=== PATIENT | female | born 1980 | race Hispanic/Latino ===

== ENCOUNTER 2018-03-21 21:10 | Emergency (ER) | payer SELFPAY ==
[2018-03-21 22:18] LABS: Absolute Lymphocytes (CBC) 3.1 K/uL (0.7-4.9); Absolute Monocytes 0.5 K/uL (0.1-1.3); Absolute Neutrophil 4.8 K/uL (1.8-8.0); Basophils % 0.4 % (0-1.3); Eosinophils % 3.7 % (0-4.4); Hematocrit 39.4 % (36.0-45.0); Lymphocytes % 35.7 % (15.3-44.8); MCH 28.9 pg (27.0-35.0); MCV 83.7 fL (80-100); MPV 7.7 fL (7.6-11.3); Monocytes % 5.6 % (3.3-12.3); RBC Red Blood Cell Count 4.71 M/uL (3.86-4.86)
[2018-03-21 22:24] LABS: Protime INR 1.03
[2018-03-21 22:40] LABS: ALT/SGPT 46 U/L (12-78); AST/SGOT 31 U/L (15-37); Albumin 3.9 g/dL (3.4-5.0); Alkaline Phosphatase 100 U/L (45-117); BUN Blood Urea Nitrogen 13 mg/dL (7-18); Bicarbonate 25 mmol/L (21-32); Bilirubin Direct < 0.1 mg/dL (0-0.2); Bilirubin Total 0.2 mg/dL (0.2-1.0); CKMB Creatine Kinase MB 1.3 ng/mL (0.3-3.6); Creatine Phosphokinase 155 U/L (26-192); Glucose Level 172 mg/dL (74-106); NT PRO-BNP 47 pg/mL (<125); Potassium 3.2 mmol/L (3.5-5.1); Protein, Total 7.9 g/dL (6.4-8.2); Sodium Level 139 mmol/L (136-145)
[2018-03-21] MEDS ORDERED: ACETAMINOPHEN 500 MG TAB ONE ×2 (23:05)
[2018-03-21 23:24] LABS: Urine Blood 2+ (NEG); Urine Glucose NEGATIVE (NEG); Urine Protein NEGATIVE (NEG); Urine Specific Gravity 1.025 (1.005-1.030)
[2018-03-22] MEDS ORDERED: POTASSIUM 25 MEQ EFFERV TAB ONE (01:44)
--- NOTE | 2018-03-22 01:49 | EDPHYS ---
Physician Documentation [facility] Name: Danay Duff Age: 37 yrs Sex: Female : 1980 Arrival Date: 03/21/2018 Time: 21:12 Bed 7 Private MD: ED Physician Franco Jiang HPI: 03/21 22:20 This 37 yrs old Female presents to ER via Ambulatory with complaints of Chest rh1 Pain. 22:20 The patient or guardian reports chest pain that is located primarily in the anterior rh1 chest wall, bilaterally. The pain does not radiate. Associated signs and symptoms: Pertinent positives: shortness of breath, Pertinent negatives: abdominal pain, cough, diaphoresis, dizziness, headache, lower extremity pain, lower extremity swelling, lightheadedness, nausea, near syncope, palpitations, recent travel, syncope, vomiting. The chest pain is described as a pressure. Duration: The patient or guardian reports multiple episodes, that are intermittent. Modifying factors: The symptoms are alleviated by nothing. the symptoms are aggravated by deep breath. Severity of pain: At its worst the pain was moderate in the emergency department the pain is unchanged. The patient has not experienced similar symptoms in the past. The patient has not recently seen a physician. Pt. reports chest pain with deep inspiration ongoing since this am. Pain is described as "something sitting there, like pushing on me." Reports this am + SOB, denies any at this time. Denies any hemoptysis, diaphoresis, weakness, paresthesias, abdominal pain, N/V.. 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 - Social history:: Smoking status: Patient/guardian denies using tobacco. - Ebola Screening: : Patient denies travel to an Ebola-affected area in the 21 days before illness onset. ROS: 22:20 Constitutional: Negative for fever, chills rh1 22:20 ENT: Negative for rhinorrhea, sinus congestion, sore throat, difficulty swallowing, difficulty handling secretions, hoarseness. 22:20 Neck: Negative for pain with movement, pain at rest. 22:20 Cardiovascular: Positive for chest pain, Negative for edema, orthopnea, palpitations. 22:20 Respiratory: Positive for pleurisy, shortness of breath, Negative for cough, dyspnea on exertion, hemoptysis, sputum production, wheezing. 22:20 Abdomen/GI: Negative for abdominal pain, nausea and vomiting. 22:20 Back: Negative for decreased range of motion, pain at rest, pain with movement, radiated pain. 22:20 : Negative for burning with urination. 22:20 MS/extremity: Negative for decreased range of motion, pain, paresthesias. 22:20 Skin: Negative for diaphoresis, swelling. 22:20 Neuro: Negative for altered mental status, dizziness, headache, numbness, syncope, near syncope, tingling, weakness. Exam: 22:20 Constitutional: This is a well developed, well nourished patient who is awake, alert, rh1 and in no acute distress. Head/Face: Normocephalic, atraumatic. Eyes: Pupils equal round and reactive to light, extra-ocular motions intact. Lids and lashes normal. Conjunctiva and sclera are non-icteric and not injected. Cornea within normal limits. Periorbital areas with no swelling, redness, or edema. ENT: Nares patent. No nasal discharge, no septal abnormalities noted. Tympanic membranes are normal and external auditory canals are clear. Oropharynx with no redness, swelling, or masses, exudates, or evidence of obstruction, uvula midline. Mucous membranes moist. Neck: Trachea midline, and no cervical lymphadenopathy. Supple, full range of motion without nuchal rigidity. No Meningismus. Cardiovascular: Regular rate and rhythm with a normal S1 and S2. No gallops, murmurs, or rubs. No JVD. No pulse deficits. Respiratory: Lungs have equal breath sounds bilaterally, clear to auscultation. No rales, rhonchi or wheezes noted. No increased work of breathing. Abdomen/GI: Soft, non-tender, with normal bowel sounds. No distension. No guarding or rebound. No evidence of tenderness throughout. Back: No spinal tenderness. No costovertebral tenderness. Full range of motion. Skin: Warm, dry with normal turgor. Normal color with no rashes, no lesions, and no evidence of cellulitis. MS/ Extremity: Pulses equal, no cyanosis. Neurovascular intact. Full, normal range of motion. 22:20 Chest/axilla: Inspection: normal, no assymetry, no deformity, no ecchymosis, no evidence of flail chest, no paradoxical chest wall movement, no rash, Palpation: crepitus, is not appreciated, tenderness, that is mild, of the anterior aspect of right upper chest, anterior aspect of left upper chest and mid-sternal area, that totally reproduces the patient's complaints. 22:20 Musculoskeletal/extremity: DVT Exam: No signs of deep vein thrombosis. Calves: are non-tender, have equal circumference. 22:20 Neuro: Orientation: is normal, to person, place \\T\\ time. Mentation: is normal, lucid, able to follow commands, Motor: is normal, moves all fours, strength is 5/5 in all extremities, Sensation: is normal, no obvious gross deficits, numbness, is not appreciated, tingling, is not appreciated, Gait: is steady, at a normal pace, without difficulty. Vital Signs: 21:18 BP 140 / 86; Pulse 98; Resp 20; Temp 98.5; Pulse Ox 98% on R/A; Weight 63.5 kg (R); aj1 Height 4 ft. 6 in. (137.16 cm); Pain 8/10; 22:00 BP 136 / 82; Pulse 95; Resp 20; Pulse Ox 98% on R/A; lp1 23:00 BP 139 / 92; Pulse 92; Resp 16; Pulse Ox 99% on R/A; lp1 23:30 BP 123 / 78; Pulse 93; Resp 15; Pulse Ox 99% on R/A; lp1 03/22 00:30 BP 143 / 89; Pulse 82; Resp 16; Pulse Ox 99% on R/A; lp1 03/21 21:18 Body Mass Index 33.76 (63.50 kg, 137.16 cm) [facility] [place] MDM: 03/21 22:20 Patient medically screened. 1 03/22 01:47 Data reviewed: vital signs, nurses notes, lab test result(s), EKG, radiologic studies, 1 plain films, and as a result, I will discharge patient. Data interpreted: Pulse oximetry: on room air is 99 %. Interpretation: normal. Counseling: I had a detailed discussion with the patient and/or guardian regarding: the historical points, exam findings, and any diagnostic results supporting the discharge/admit diagnosis, lab results, radiology results, the need for outpatient follow up, a family practitioner, to return to the emergency department if symptoms worsen or persist or if there are any questions or concerns that arise at home. Special discussion: Based on the patient's history, exam, and Dx evaluation, there is no indication for emergent intervention or inpatient Tx. It is understood by the patient/guardian that if the Sx's persist or worsen they need to return immediately for re-evaluation. ED course: we discussed her urine results, and given the option for observation and follow up with PCP given her lack of symptoms, or treating with abx today -- she opts for observation and will follow up with her PCP. 03/21 22:06 Order name: Basic Metabolic Panel; Complete Time: 22:42 lp1 03/21 22:06 Order name: CBC with Diff; Complete Time: 22:42 lp1 03/21 22:06 Order name: Ckmb; Complete Time: 22:42 lp1 03/21 22:06 Order name: CPK; Complete Time: 22:42 lp1 03/21 22:06 Order name: LFT's; Complete Time: 22:42 lp1 03/21 22:06 Order name: Magnesium; Complete Time: 22:42 lp1 03/21 22:06 Order name: NT PRO-BNP; Complete Time: 22:42 lp1 03/21 22:06 Order name: PT-INR; Complete Time: 22:42 lp1 03/21 22:06 Order name: Ptt, Activated; Complete Time: 22:42 lp1 03/21 22:06 Order name: Troponin (emerg Dept Use Only); Complete Time: 22:42 lp1 03/21 22:26 Order name: D-Dimer; Complete Time: 23:33 rh1 03/21 23:00 Order name: Urine Dipstick--Ancillary (enter results); Complete Time: 23:33 eb 03/21 23:00 Order name: Urine --Ancillary (enter results); Complete Time: 23:33 eb 03/22 00:36 Order name: Troponin (emerg Dept Use Only); Complete Time: 01:22 lp1 03/21 22:06 Order name: Urine Test (obtain specimen); Complete Time: 22:39 lp1 03/21 22:06 Order name: XRAY Chest (1 view) lp1 03/21 22:06 Order name: EKG; Complete Time: 22:06 lp1 03/21 22:06 Order name: Cardiac monitoring; Complete Time: 22:07 lp1 03/21 22:06 Order name: EKG - Nurse/Tech; Complete Time: 22:07 lp1 03/21 22:06 Order name: IV Saline Lock; Complete Time: 22:07 lp03/21 22:06 Order name: Labs collected and sent; Complete Time: 22:06 lp1 03/21 22:06 Order name: O2 Per Protocol; Complete Time: 22:06 lp1 03/21 22:06 Order name: O2 Sat Monitoring; Complete Time: 22:06 lp1 03/21 22:06 Order name: Urine Dipstick-Ancillary (obtain specimen); Complete Time: 22:39 lp1 03/21 23:34 Order name: Misc. Order: please repeat trop and EKG at 0100; Complete Time: 01:01 [facility] Administered Medications: 03/21 23:10 Drug: Tylenol 1000 mg Route: PO; lp1 03/22 01:01 Follow up: Response: No adverse reaction; Marked relief of symptoms lp1 01:47 Drug: Potassium Effervescent Tablet 50 mEq Route: PO; lp1 02:06 Follow up: Response: No adverse reaction lp1 Disposition: 03/22/18 01:48 Discharged to Home. Impression: Chest pain on breathing. - Condition is Stable. - Discharge Instructions: Nonspecific Chest Pain, Pleurisy, Urinary Tract Infection. - Medication Reconciliation Form, Thank You Letter, Antibiotic Education, Prescription Opioid Use form. - Follow up: Private Physician; When: 1 - 2 days; Reason: Recheck today's complaints, Continuance of care, Re-evaluation by your physician. Follow up: Emergency Department; When: As needed; Reason: Fever > 102 F, If symptoms return, Trouble breathing, Worsening of condition. - Problem is new. - Symptoms have improved. Addendum: 03/23/2018 08:46 Co-signature as Attending Physician, Franco Jiang MD I agree with the assessment and c finch plan of care. Signatures: Dispatcher [facility] Marlee Montana RN RN aj1 Franco Jiang MD MD cha Pena, Laura, RN RN lp1 Marbiell Lea, INSTRUMENT TECHNICIAN INSTRUMENT TECHNICIAN rh1 Corrections: (The following items were deleted from the chart) 03/22 02:05 01:48 03/22/2018 01:48 Discharged to Home. Impression: Chest pain on breathing. lp1 Condition is Stable. Discharge Instructions: Nonspecific Chest Pain, Pleurisy. Forms are Medication Reconciliation Form, Thank You Letter, Antibiotic Education, Prescription Opioid Use. Follow up: Private Physician; When: 1 - 2 days; Reason: Recheck today's complaints, Continuance of care, Re-evaluation by your physician. Follow up: Emergency Department; When: As needed; Reason: Fever > 102 F, If symptoms return, Trouble breathing, Worsening of condition. Problem is new. Symptoms have improved. rh1
--- NOTE | 2018-03-22 01:49 | ER ---
Nurse's Notes [facility] Name: Danay Duff Age: 37 yrs Sex: Female : 1980 Arrival Date: 03/21/2018 Time: 21:12 Bed 7 Private MD: Diagnosis: Chest pain on breathing Presentation: 03/21 21:15 Presenting complaint: Patient states: Reports substernal chest pain since this morning aj1 and a headache that just started. Reports shortness of breath this morning that has now resolved. Chest pain is worse with deep breathing. Denies cough, fever, nasal congestion. Transition of care: patient was not received from another setting of care. Onset of symptoms was March 21, 2018. Risk Assessment: Do you want to hurt yourself or someone else? Patient reports no desire to harm self or others. Initial Sepsis Screen: Does the patient meet any 2 criteria? No. Patient's initial sepsis screen is negative. Does the patient have a suspected source of infection? No. Patient's initial sepsis screen is negative. Care prior to arrival: None. 21:15 Method Of Arrival: Ambulatory aj1 21:15 Acuity: DADA 3 aj1 Triage Assessment: 21:18 General: Appears in no apparent distress. comfortable, Behavior is calm, cooperative, aj1 appropriate for age. Pain: Complains of pain in mid-sternal area Pain does not radiate. Pain currently is 8 out of 10 on a pain scale. Quality of pain is described as sharp, Pain began 0500 this morning Is continuous, Aggravated by deep breathing. Cardiovascular: Reports chest pain, shortness of breath, Denies palpitations, syncope, vomiting, Heart tones S1 S2 present Patient's skin is warm and dry. Respiratory: Reports shortness of breath Airway is patent Respiratory effort is even, unlabored, Respiratory pattern is regular, symmetrical, Breath sounds are clear bilaterally. Derm: Skin is pink, warm \T\ dry. normal. Musculoskeletal: Circulation, motion, and sensation intact. 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 - Social history:: Smoking status: Patient/guardian denies using tobacco. - Ebola Screening: : Patient denies travel to an Ebola-affected area in the 21 days before illness onset. Screenin:50 Abuse screen: Denies threats or abuse. Denies injuries from another. Nutritional lp1 screening: No deficits noted. Tuberculosis screening: No symptoms or risk factors identified. Fall Risk None identified. Assessment: 21:48 General: Appears uncomfortable, Behavior is appropriate for age. Pain: Complains of lp1 pain in chest Pain does not radiate. Pain currently is 8 out of 10 on a pain scale. Quality of pain is described as pressure, Pain began gradually, Noted to be grimacing. Neuro: Level of Consciousness is awake, alert, obeys commands, Oriented to person, place, time, situation, Gait is steady, Pupils are PERRLA, Reports headache occipital area. Cardiovascular: Patient's skin is warm and dry. Respiratory: Respiratory effort is even, unlabored, Respiratory pattern is regular, Breath sounds are clear bilaterally. GI: No signs and/or symptoms were reported involving the gastrointestinal system. : No signs and/or symptoms were reported regarding the genitourinary system. EENT: No signs and/or symptoms were reported regarding the EENT system. Derm: Skin is pink, warm \T\ dry. Musculoskeletal: Circulation, motion, and sensation intact. 23:00 Reassessment: Patient appears in no apparent distress at this time. No changes from lp1 previously documented assessment. Patient and/or family updated on plan of care and expected duration. Pain level reassessed. 03/22 00:00 Reassessment: Patient appears in no apparent distress at this time. Patient and/or lp1 family updated on plan of care and expected duration. Pain level reassessed. Patient is alert, oriented x 3, equal unlabored respirations, skin warm/dry/pink. Patient states symptoms have improved. 00:58 Reassessment: Patient aware of waiting on repeat lab work. lp1 Vital Signs: 03/21 21:18 BP 140 / 86; Pulse 98; Resp 20; Temp 98.5; Pulse Ox 98% on R/A; Weight 63.5 kg (R); aj1 Height 4 ft. 6 in. (137.16 cm); Pain 8/10; 22:00 BP 136 / 82; Pulse 95; Resp 20; Pulse Ox 98% on R/A; lp1 23:00 BP 139 / 92; Pulse 92; Resp 16; Pulse Ox 99% on R/A; lp1 23:30 BP 123 / 78; Pulse 93; Resp 15; Pulse Ox 99% on R/A; lp1 07 00:30 BP 143 / 89; Pulse 82; Resp 16; Pulse Ox 99% on R/A; lp1 03/21 21:18 Body Mass Index 33.76 (63.50 kg, 137.16 cm) [facility] ED Course: 03/21 21:12 Patient arrived in ED. al2 21:17 Triage completed. aj1 21:18 Arm band placed on Patient placed in waiting room, Patient notified of wait time. aj1 21:25 Laurie Ledbetter, RN is Primary Nurse. lp1 21:38 EKG done, by ED staff. lp1 21:38 Patient maintains SpO2 saturation greater than 95% on room air. lp1 21:39 Inserted saline lock: 20 gauge in right antecubital area, using aseptic technique. bb Blood collected. 21:50 Patient has correct armband on for positive identification. Placed in gown. Bed in low lp1 position. Call light in reach. production control scheduler on. Pulse ox on. NIBP on. 22:19 Maribell Lea NP is PHCP. rh1 22:19 Franco Jiang MD is Attending Physician. rh1 22:25 XRAY Chest (1 view) In Process Unspecified. EDMS 23:41 No provider procedures requiring assistance completed. lp1 03/22 00:50 Repeat lab(s) drawn. by ED staff, sent to lab. lp1 01:48 IV discontinued, No redness/swelling at site. Pressure dressing applied. lp1 Administered Medications: 03/21 23:10 Drug: Tylenol 1000 mg Route: PO; lp1 03/22 01:01 Follow up: Response: No adverse reaction; Marked relief of symptoms lp1 01:47 Drug: Potassium Effervescent Tablet 50 mEq Route: PO; lp1 02:06 Follow up: Response: No adverse reaction lp1 Outcome: 01:48 Condition: good lp1 01:48 Discharge ordered by . rh1 02:04 Discharged to home ambulatory, with family. lp1 02:04 Discharge instructions given to patient, Instructed on discharge instructions, follow up and referral plans. Demonstrated understanding of instructions, follow-up care. 02:05 Patient left the ED. lp1 Signatures: Dispatcher [employer] EDMarlee Zacarias RN RN aj1 Alyssa Jiménez RN RN bb Pena, Laura, RN RN lp1 Maribell Lea NP BIOMEDICAL REPAIR TECHNICIAN 1 Mariluz Riddle
--- NOTE | 2018-03-22 06:20 | EKG ---
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
--- NOTE | 2018-03-22 12:40 | RAD REPORT ---
EXAM DESCRIPTION: RAD - Chest Single View - 03/21/2018 10:26 pm CLINICAL HISTORY: CHEST PAIN Chest pain. COMPARISON: Chest Pa And Lat (2 Views) dated 10/05/2017 FINDINGS: Portable technique limits examination quality. The lungs are grossly clear. The heart is normal in size. No displaced fractures. IMPRESSION: No acute intrathoracic process suspected.
--- NOTE | 2018-03-22 16:04 | EKG ---
Test Date: 2018-03-22 Test Time: 00:40:07 Social Services: NANO MEASUREMENT RESULTS: Intervals: Rate: 82 ID: [id number] QRSD: 82 QT: 384 QTc: 448 [place]: P: 19 ID: [id number] QRS: 70 T: 46 INTERPRETIVE STATEMENTS: Sinus rhythm with short ID Otherwise normal ECG Compared to ECG 03/21/2018 21:30:40 Short ID interval now present Electronically Signed On 03-22-18 16:03:15 CDT by Leopoldo White
== END 2018-03-22 02:05 | disposition home or self-care (01) ==
LOC: ER 21:10
DX: R07.1 Chest pain on breathing (principal)
CPT/HCPCS: 36415; 71045; 80048; 80076; 81003; 81025; 82550; 82553; 83735; 83880; 84484; 85025; 85379; 85610; 85730; 93005; 99285

== ENCOUNTER 2019-04-25 15:19 | Emergency (ER) | payer SELFPAY ==
--- NOTE | 2019-04-25 16:01 | ER ---
Nurse's Notes [facility] Name: Danay Duff Age: 38 yrs Sex: Female : 1980 Arrival Date: 04/25/2019 Time: 15:21 Bed 19 Private MD: Diagnosis: Chest wall contusion Presentation: 04/25 15:23 Presenting complaint: Patient states: last week, me and my son played wrestling and i hj fell out of the bed and hurt my R back and R chest area, its hard to breathe; denies hitting head and LOC:. Transition of care: patient was not received from another setting of care. Onset of symptoms was April 25, 2019. Risk Assessment: Do you want to hurt yourself or someone else? Patient reports no desire to harm self or others. Initial Sepsis Screen: Does the patient meet any 2 criteria? No. Patient's initial sepsis screen is negative. Does the patient have a suspected source of infection? No. Patient's initial sepsis screen is negative. Care prior to arrival: None. 15:23 Method Of Arrival: Ambulatory 15:23 Acuity: DADA 4 Triage Assessment: 15:28 General: Appears in no apparent distress. comfortable, Behavior is calm, cooperative, hj appropriate for age. Respiratory: Reports pain with respiration Onset: The symptoms/episode began/occurred the patient has mild shortness of breath. 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 - Social history:: Smoking status: Patient/guardian denies using tobacco, Patient/guardian denies using alcohol. - Ebola Screening: : Patient negative for fever greater than or equal to 101.5 degrees Fahrenheit, and additional compatible Ebola Virus Disease symptoms Patient denies exposure to infectious person Patient denies travel to an Ebola-affected area in the 21 days before illness onset. Screenin:27 Abuse screen: Denies threats or abuse. Denies injuries from another. Nutritional hj screening: No deficits noted. Tuberculosis screening: No symptoms or risk factors identified. Fall Risk None identified. Assessment: 15:27 Pain: Complains of pain in back and chest. Cardiovascular: Rhythm is. Respiratory: hj Airway is patent Respiratory effort is even, unlabored, Respiratory pattern is regular, symmetrical, Breath sounds are clear. Vital Signs: 15:25 BP 141 / 76; Pulse 70; Resp 18; Temp 98.4(O); Pulse Ox 98% on R/A; Weight 58.97 kg; hj Height 4 ft. 11 in. (149.86 cm); Pain 8/10; 15:25 Body Mass Index 26.26 (58.97 kg, 149.86 cm) hj ED Course: 15:21 Patient arrived in ED. mr 15:24 Triage completed. hj 15:25 Arm band placed on right wrist. hj 15:28 Jim Gonsalez PA is PHCP. jr8 15:28 Daniel Sharma MD is Attending Physician. jr8 15:28 Patient has correct armband on for positive identification. Bed in low position. Call hj light in reach. Side rails up X 1. 15:37 Rowdy Ordaz LVN is Primary Nurse. em 15:42 Patient moved to radiology via wheelchair. 1 15:42 X-ray completed. Patient tolerated procedure well. 1 15:42 Patient moved back from radiology. 1 15:44 XRAY Chest Pa And Lat (2 Views) In Process Unspecified. EDID 16:32 No provider procedures requiring assistance completed. Patient did not have IV access em during this emergency room visit. Administered Medications: No medications were administered Outcome: 16:00 Discharge ordered by . jr8 16:32 Discharged to home ambulatory. em 16:32 Condition: good 16:32 Discharge instructions given to patient, Instructed on discharge instructions, follow up and referral plans. Demonstrated understanding of instructions, follow-up care. 16:33 Patient left the ED. em Signatures: Dispatcher [employer] EDID Emily Dubon Martha 1 Rowdy Ordaz LVN LVN em Jim Gonsalez PA PA Sridhar Francisco RN RN Corrections: (The following items were deleted from the chart) 15:27 15:25 Pulse 70bpm; Resp 18bpm; Pulse Ox 98% RA; Temp 98.4F Oral; 58.97 kg; Height 4 ft. hj 11 in.; BMI: 26.2; Pain 8/10; hj
--- NOTE | 2019-04-25 16:01 | EDPHYS ---
Physician Documentation [facility] Name: Danay Duff Age: 38 yrs Sex: Female : 1980 Arrival Date: 04/25/2019 Time: 15:21 Bed 19 Private MD: ED Physician Daniel Sharma HPI: 04/25 15:32 This 38 yrs old Female presents to ER via Ambulatory with complaints of jr8 Breathing Difficulty. 15:32 The patient has shortness of breath at rest. Onset: The symptoms/episode began/occurred jr8 acutely, 2 day(s) ago. Duration: The symptoms are continuous. The patient's shortness of breath has no apparent modifying factors. Associated signs and symptoms: Pertinent positives: chest pain. Severity of symptoms: At their worst the symptoms were mild in the emergency department the symptoms are unchanged. The patient has not experienced similar symptoms in the past. The patient has not recently seen a physician. Patient stated that her and her son were wrestling. Stated that her right side of chest now hurts. Pain to anterior chest wall and just under scapula . 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 - Social history:: Smoking status: Patient/guardian denies using tobacco, Patient/guardian denies using alcohol. - Ebola Screening: : Patient negative for fever greater than or equal to 101.5 degrees Fahrenheit, and additional compatible Ebola Virus Disease symptoms Patient denies exposure to infectious person Patient denies travel to an Ebola-affected area in the 21 days before illness onset. ROS: 15:32 Eyes: Negative for injury, pain, redness, and discharge, ENT: Negative for injury, jr8 pain, and discharge, Neck: Negative for injury, pain, and swelling, Abdomen/GI: Negative for abdominal pain, nausea, vomiting, diarrhea, and constipation, Back: Negative for injury and pain, MS/Extremity: Negative for injury and deformity, Skin: Negative for injury, rash, and discoloration, Neuro: Negative for headache, weakness, numbness, tingling, and seizure. 15:32 Cardiovascular: Positive for chest pain, Negative for edema, orthopnea, palpitations, paroxysmal nocturnal dyspnea. 15:32 Respiratory: Positive for shortness of breath, Negative for cough, dyspnea on exertion, sputum production, wheezing. Exam: 15:32 Eyes: Pupils equal round and reactive to light, extra-ocular motions intact. Lids and jr8 lashes normal. Conjunctiva and sclera are non-icteric and not injected. Cornea within normal limits. Periorbital areas with no swelling, redness, or edema. ENT: Nares patent. No nasal discharge, no septal abnormalities noted. Tympanic membranes are normal and external auditory canals are clear. Oropharynx with no redness, swelling, or masses, exudates, or evidence of obstruction, uvula midline. Mucous membranes moist. Neck: Trachea midline, no thyromegaly or masses palpated, and no cervical lymphadenopathy. Supple, full range of motion without nuchal rigidity, or vertebral point tenderness. No Meningismus. Cardiovascular: Regular rate and rhythm with a normal S1 and S2. No gallops, murmurs, or rubs. Normal PMI, no JVD. No pulse deficits. Respiratory: Lungs have equal breath sounds bilaterally, clear to auscultation and percussion. No rales, rhonchi or wheezes noted. No increased work of breathing, no retractions or nasal flaring. Abdomen/GI: Soft, non-tender, with normal bowel sounds. No distension or tympany. No guarding or rebound. No evidence of tenderness throughout. Back: No spinal tenderness. No costovertebral tenderness. Full range of motion. Skin: Warm, dry with normal turgor. Normal color with no rashes, no lesions, and no evidence of cellulitis. MS/ Extremity: Pulses equal, no cyanosis. Neurovascular intact. Full, normal range of motion. Neuro: Awake and alert, GCS 15, oriented to person, place, time, and situation. Cranial nerves II-XII grossly intact. Motor strength 5/5 in all extremities. Sensory grossly intact. Cerebellar exam normal. Normal gait. 15:32 Chest/axilla: Inspection: normal, Palpation: tenderness, that is moderate, of the anterior aspect of right upper chest, Axilla: are normal. Vital Signs: 15:25 BP 141 / 76; Pulse 70; Resp 18; Temp 98.4(O); Pulse Ox 98% on R/A; Weight 58.97 kg; hj Height 4 ft. 11 in. (149.86 cm); Pain 8/10; 15:25 Body Mass Index 26.26 (58.97 kg, 149.86 cm) MDM: 15:28 Patient medically screened. jr8 16:00 Data reviewed: vital signs, nurses notes, radiologic studies, plain films, and as a jr8 result, I will discharge patient. Data interpreted: Pulse oximetry: on room air is 98 %. Interpretation: normal. Counseling: I had a detailed discussion with the patient and/or guardian regarding: the historical points, exam findings, and any diagnostic results supporting the discharge/admit diagnosis, radiology results, the need for outpatient follow up, a family practitioner, to return to the emergency department if symptoms worsen or persist or if there are any questions or concerns that arise at home. 04/25 15:32 Order name: XRAY Chest Pa And Lat (2 Views) jr8 Administered Medications: No medications were administered Disposition: 17:14 Co-signature as Attending Physician, Daniel Sharma MD. rn Disposition: 04/25/19 16:00 Discharged to Home. Impression: Chest wall contusion . - Condition is Stable. - Discharge Instructions: Chest Wall Pain. - Medication Reconciliation Form, Thank You Letter, Antibiotic Education, Prescription Opioid Use form. - Follow up: Private Physician; When: 2 - 3 days; Reason: Recheck today's complaints, Continuance of care, Re-evaluation by your physician. - Problem is new. - Symptoms have improved. Signatures: Dispatcher [employer] EDMA Rowdy Ordaz, CODING TEAM LEAD CODING TEAM LEAD Daniel Martínez MD MD rn Roszak, Josh, PA PA jr8 Sridhar Calderon RN RN Corrections: (The following items were deleted from the chart) 16:33 16:00 04/25/2019 16:00 Discharged to Home. Impression: Chest wall contusion . Condition em is Stable. Forms are Medication Reconciliation Form, Thank You Letter, Antibiotic Education, Prescription Opioid Use. Follow up: Private Physician; When: 2 - 3 days; Reason: Recheck today's complaints, Continuance of care, Re-evaluation by your physician. Problem is new. Symptoms have improved. jr8
--- NOTE | 2019-04-25 17:04 | RAD REPORT ---
EXAM DESCRIPTION: RAD - Chest Pa And Lat (2 Views) - 04/25/2019 3:45 pm CLINICAL HISTORY: Chest pain, recent trauma COMPARISON: February 2018 TECHNIQUE: PA and lateral views of the chest were obtained. FINDINGS: The lungs are clear. Heart size is normal and central vasculature is within normal limit s. No pleural effusion or pneumothorax seen. No acute bone findings identifiable. No aortic abnorma lity. No significant change from comparison. IMPRESSION: No acute cardiopulmonary process.
== END 2019-04-25 16:33 | disposition home or self-care (01) ==
LOC: ER 15:19
DX: S20.211A Contusion of right front wall of thorax, initial encounter (principal); Y93.83 Activity, rough housing and horseplay
CPT/HCPCS: 71046; 99283

== ENCOUNTER 2020-11-21 16:15 | Inpatient (IN) | payer SELFPAY ==
[2020-11-21 17:01] LABS: Absolute Lymphocytes (CBC) 1.9 K/uL (0.7-4.9); Basophils % 0.7 % (0-1.3); Hematocrit 39.7 % (36.0-45.0); Lymphocytes % 11.8 % (15.3-44.8); MPV 7.7 fL (7.6-11.3); RBC Red Blood Cell Count 4.64 M/uL (3.86-4.86)
[2020-11-21] MEDS ORDERED: ONDANSETRON 4 MG/2 ML VIAL ONE ×2 (17:05→20:22)
[2020-11-21] MEDS ORDERED: MORPHINE 4 MG/ML SYR ONE ×2 (17:05→18:42)
[2020-11-21 17:10] LABS: Urine Blood 2+ (NEG); Urine Glucose NEGATIVE (NEG); Urine Protein NEGATIVE (NEG); Urine pH 5.5 (5.0-7.0)
[2020-11-21 17:18] LABS: ALT/SGPT 45 U/L (12-78); AST/SGOT 19 U/L (15-37); Albumin 4.2 g/dL (3.4-5.0); Alkaline Phosphatase 99 U/L (45-117); BUN Blood Urea Nitrogen 11 mg/dL (7-18); Bicarbonate 24 mmol/L (21-32); Bilirubin Direct < 0.1 mg/dL (0-0.2); Bilirubin Total 0.4 mg/dL (0.2-1.0); Glucose Level 142 mg/dL (74-106); Lipase 91 U/L (73-393); Potassium 3.6 mmol/L (3.5-5.1); Protein, Total 8.3 g/dL (6.4-8.2); Sodium Level 140 mmol/L (136-145)
[2020-11-21 17:49] LABS: Urine Bacteria >50 /HPF (<20); Urine Mucus 2+ /HPF (NONE SEEN)
--- NOTE | 2020-11-21 18:00 | RAD REPORT ---
EXAM DESCRIPTION: CT - Abdomen Pelvis W Contrast - 11/21/2020 5:44 pm CLINICAL HISTORY: right lower abdominal pain, right flank pain, vomiting COMPARISON: No comparisons TECHNIQUE: Biphasic, helical CT imaging of the abdomen and pelvis was performed following 100 ml non -ionic IV contrast. No oral contrast administered. All CT scans are performed using dose optimization technique as appropriate and may include automated exposure control or mA/KV adjustment according to patient size. FINDINGS: No suspicious findings in the lung bases. Liver shows borderline to mild fatty infiltration with no focal liver lesion. No portal vein abnormal ity. Pancreas and spleen are unremarkable. Gallbladder and biliary tree are also without suspicious f inding. Normal enhancement of the renal parenchyma. Patient has horseshoe kidney developmental variant. No hy dronephrosis or obstructing calculus. No pyelonephritis or acute parenchymal process. No bladder abno rmalities. No adrenal abnormalities. Uterus is absent. Ovaries are absent or atrophic. No dilated bowel loops or bowel wall thickening. No stomach or small bowel abnormality. The appendix is abnormal dilated to 9-10 mm with wall thickening and edema. There is periappendiceal inflammatory stranding. The appendix is partially retrocecal. No perforation findings confirmed. There is no free air, abscess or other complicating factor. Mild wall thickening and edema at the tip of the cecum. Co ahmet is otherwise unremarkable. Elsewhere no free air, free fluid or inflammatory stranding. No pneuma tosis. No hernia, mass or bulky lymphadenopathy. No suspicious bony findings. Findings telephoned to the referring clinician 5:56 p.m. IMPRESSION: Acute appendicitis. The appendix is partially retrocecal in the right lower quadrant. No abscess, free air or other complicating factor.
--- NOTE | 2020-11-21 18:13 | ER ---
Nurse's Notes [facility] Name: Danay Duff Age: 40 yrs Sex: Female : 1980 Arrival Date: 11/21/2020 Time: 16:19 Bed 4 Private MD: Diagnosis: Acute appendicitis Presentation: 11/21 16:22 Chief complaint: Patient states: "I started hurting on my right lower stomach last jd3 night. I also was having vomiting.". Coronavirus screen: At this time, the client does not indicate any symptoms associated with coronavirus-19. Ebola Screen: Patient negative for fever greater than or equal to 101.5 degrees Fahrenheit, and additional compatible Ebola Virus Disease symptoms. Initial Sepsis Screen: Does the patient meet any 2 criteria? No. Patient's initial sepsis screen is negative. Does the patient have a suspected source of infection? No. Patient's initial sepsis screen is negative. Risk Assessment: Do you want to hurt yourself or someone else? Patient reports no desire to harm self or others. Onset of symptoms was November 20, 2020. 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 - Social history:: Smoking status: Patient denies any tobacco usage or history of. Screenin:03 Abuse screen: Denies threats or abuse. Nutritional screening: No deficits noted. bw Tuberculosis screening: No symptoms or risk factors identified. Fall Risk None identified. Assessment: 17:03 General: Appears in no apparent distress. uncomfortable, Behavior is calm, cooperative. bw Pain: Complains of pain in right lower quadrant Pain does not radiate. Pain currently is 8 out of 10 on a pain scale. Neuro: No deficits noted. Cardiovascular: No deficits noted. Respiratory: No deficits noted. GI: Abdomen is tender to palpation in right lower quadrant Reports lower abdominal pain, Patient currently denies. : No deficits noted. EENT: No deficits noted. Derm: No deficits noted. Musculoskeletal: No deficits noted. Vital Signs: 16:24 BP 140 / 82; Pulse 73; Resp 16 S; Temp 97.7(TE); Pulse Ox 97% on R/A; Weight 59.87 kg jd3 (R); Height 4 ft. 7 in. (139.70 cm) (R); Pain 5/10; 18:05 BP 148 / 74; Pulse 84; Resp 18; Pulse Ox 100% on R/A; bw 16:24 Body Mass Index 30.68 (59.87 kg, 139.70 cm) jd3 ED Course: 16:19 Patient arrived in ED. mr 16:23 Triage completed. j 16:25 Arm band placed on. [facility] 16:30 Javan Hendrickson PA is PHCP. [facility] 16:30 Daniel Sharma MD is Attending Physician. [facility] 16:45 Dulce Palomino, PARTH is Primary Nurse. bw 17:03 Patient has correct armband on for positive identification. Bed in low position. Call bw light in reach. Side rails up X2. hall monitor on. Pulse ox on. NIBP on. Warm blanket given. 17:03 No provider procedures requiring assistance completed. Inserted saline lock: 20 gauge bw in left antecubital area, using aseptic technique. 17:12 Basic Metabolic Panel Sent. bw 17:12 CBC with Diff Sent. bw 17:44 CT Abd/Pelvis - IV Contrast Only In Process Unspecified. EDMS 18:01 Urine Culture Sent. bw 18:05 Appears tearful. Awaiting surgery. bw 18:05 Patient admitted, IV remains in place. intact, No redness/swelling at site. bw 18:11 Kartik Cazares MD is Hospitalizing Provider. [facility] Administered Medications: 16:55 Drug: morphine 4 mg Route: IVP; Site: left antecubital; bw 16:55 Drug: Zofran (Ondansetron) 4 mg Route: IVP; Site: left antecubital; bw 18:00 Drug: Flagyl 500 mg Volume: 100 ml; Route: IVPB; Rate: 200 ml/hr; Infused Over: 30 bw mins; Site: left antecubital; 18:30 Follow up: Response: No adverse reaction; IV Status: Completed infusion bw 18:06 Drug: Cipro 400 mg Volume: 200 ml; Route: IVPB; Infused Over: 60 mins; Site: left bw antecubital; 19:04 Follow up: IV Status: Completed infusion 18:22 Drug: morphine 4 mg Route: IVP; Site: left antecubital; 19:05 Follow up: Response: No adverse reaction Outcome: 18:05 Admitted to OR via wheelchair. 18:12 Decision to Hospitalize by Provider. [facility] 18:59 Condition: stable 18:59 Instructed on the need for admit. 19:03 Patient left the ED. Signatures: Dispatcher [employer] EDMS Javan Hendrickson PA PA jmm JagdishEmily mr Shelby Jean RN RN [email or web address] Kaushal Ribeiro RN RN jd3 Webb, Bethany, RN RN Corrections: (The following items were deleted from the chart) 16:35 16:28 Shelby Jean, RN is Primary Nurse. aa5 aa5
--- NOTE | 2020-11-21 18:13 | EDPHYS ---
Physician Documentation [facility] Name: Danay Duff Age: 40 yrs Sex: Female : 1980 Arrival Date: 11/21/2020 Time: 16:19 Bed 4 Private MD: ED Physician Daniel Sharma HPI: 11/21 16:36 This 40 yrs old Female presents to ER via Ambulatory with complaints of Flank jmm Pain. 16:36 The patient complains of pain in the right flank. Onset: The symptoms/episode jmm began/occurred gradually, last night. Modifying factors: The symptoms are alleviated by nothing. the symptoms are aggravated by nothing. Associated signs and symptoms: Pertinent positives: vomiting. The patient has not experienced similar symptoms in the past. 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 - Social history:: Smoking status: Patient denies any tobacco usage or history of. ROS: 16:36 Constitutional: Negative for fever, chills, and weight loss, Cardiovascular: Negative jmm for chest pain, palpitations, and edema, Respiratory: Negative for shortness of breath, cough, wheezing, and pleuritic chest pain. 16:36 Abdomen/GI: Positive for abdominal pain, nausea and vomiting. 16:36 All other systems are negative. Exam: 16:36 Constitutional: This is a well developed, well nourished patient who is awake, alert, jmm and in no acute distress. Head/Face: atraumatic. Eyes: EOMI, no conjunctival erythema appreciated ENT: Moist Mucus Membranes Neck: Trachea midline, Supple Chest/axilla: Normal chest wall appearance and motion. Cardiovascular: Regular rate and rhythm. No edema appreciated Respiratory: Normal respirations, no respiratory distress appreciated 16:36 Back: Normal ROM Skin: General appearance color normal MS/ Extremity: Moves all extremities, no obvious deformities appreciated, no edema noted to the lower extremities Neuro: Awake and alert, normal gait 16:36 Abdomen/GI: Inspection: abdomen appears normal, Bowel sounds: normal, Palpation: soft, moderate abdominal tenderness, in the right lower quadrant. Vital Signs: 16:24 BP 140 / 82; Pulse 73; Resp 16 S; Temp 97.7(TE); Pulse Ox 97% on R/A; Weight 59.87 kg jd3 (R); Height 4 ft. 7 in. (139.70 cm) (R); Pain 5/10; 18:05 BP 148 / 74; Pulse 84; Resp 18; Pulse Ox 100% on R/A; bw 16:24 Body Mass Index 30.68 (59.87 kg, 139.70 cm) jd3 MDM: 16:36 Patient medically screened. [facility] 18:08 Data reviewed: vital signs, nurses notes. Counseling: I had a detailed discussion with [facility] the patient and/or guardian regarding: the historical points, exam findings, and any diagnostic results supporting the discharge/admit diagnosis, lab results, radiology results, the need for further work-up and treatment in the hospital. ED course: I discussed the patient with Dr. Cazares whom will accepted the patient to his service. . 03 16:41 Order name: Basic Metabolic Panel [facility] 11/21 16:41 Order name: CBC with Diff [facility] 11/21 16:41 Order name: Hepatic Function; Complete Time: 17:[address] [facility] 11/21 16:41 Order name: Lipase; Complete Time: 17:[address] [facility] 11/21 16:41 Order name: Basic Metabolic Panel; Complete Time: 17:57 [facility] 11/21 16:41 Order name: CBC with Automated Diff; Complete Time: 17:57 [facility] 11/21 17:02 Order name: Urine Microscopic Only; Complete Time: 17:57 bw 11/21 17:04 Order name: Urine Dipstick--Ancillary (enter results); Complete Time: 17:57 11/21 17:04 Order name: Urine --Ancillary (enter results); Complete Time: 17:57 11/21 17:50 Order name: Urine Culture [facility] 11/21 18:19 Order name: Basic Metabolic Panel [facility] 11/21 18:19 Order name: Basic Metabolic Panel [facility] 11/21 18:19 Order name: CBC with Automated Diff [facility] 11/21 18:19 Order name: CBC with Automated Diff [facility] 03/02 16:41 Order name: IV Saline Lock; Complete Time: 17:[address] [facility] 11/21 16:41 Order name: Labs collected and sent; Complete Time: 17:[address] [facility] 11/21 16:41 Order name: Urine Dipstick-Ancillary (obtain specimen); Complete Time: 17:[address] [facility] 11/21 16:41 Order name: Urine Test (obtain specimen); Complete Time: 17:[address] [facility] 11/21 17:16 Order name: CT Abd/Pelvis - IV Contrast Only; Complete Time: 18:[address] [facility] 11/21 18:19 Order name: NPO [facility] 11/21 18:19 Order name: Lipase [facility] 11/21 18:19 Order name: Lipase [facility] 11/21 18:19 Order name: Liver (Hepatic) Function [facility] 11/21 18:19 Order name: Liver (Hepatic) Function EDMS Administered Medications: 16:55 Drug: morphine 4 mg Route: IVP; Site: left antecubital; 16:55 Drug: Zofran (Ondansetron) 4 mg Route: IVP; Site: left antecubital; bw 18:00 Drug: Flagyl 500 mg Volume: 100 ml; Route: IVPB; Rate: 200 ml/hr; Infused Over: 30 bw mins; Site: left antecubital; 18:30 Follow up: Response: No adverse reaction; IV Status: Completed infusion 18:06 Drug: Cipro 400 mg Volume: 200 ml; Route: IVPB; Infused Over: 60 mins; Site: left bw antecubital; 19:04 Follow up: IV Status: Completed infusion 18:22 Drug: morphine 4 mg Route: IVP; Site: left antecubital; 19:05 Follow up: Response: No adverse reaction Disposition: 19:03 Co-signature as Attending Physician, Daniel Sharma MD. rn Disposition: 11/21/20 18:12 Hospitalization ordered by Kartik Cazares for Observation. Preliminary diagnosis is Acute appendicitis. - Bed requested for Telemetry/MedSurg (observation). - Status is Observation. bw - Condition is Stable. - Problem is new. - Symptoms are unchanged. Signatures: Dispatcher [employer] [facility] Javan Hendrickson PA PA Daniel Romo MD MD rn Davies, Jonathon, RN RN jd3 Webb, Bethany, RN RN Corrections: (The following items were deleted from the chart) 19:03 18:12 Hospitalization Ordered by Kartik Cazares MD for Observation. Preliminary bw diagnosis is Acute appendicitis. Bed requested for Telemetry/MedSurg (observation). Status is Observation. Condition is Stable. Problem is new. Symptoms are unchanged. ruby
[2020-11-21] MEDS ORDERED: ONDANSETRON 4 MG/2 ML VIAL IV PRN (18:15)
[2020-11-21] MEDS ORDERED: ACETAMINOPHEN 500 MG TAB PO PRN (18:15)
[2020-11-21] MEDS ORDERED: MORPHINE 4 MG/ML SYR IV PRN (18:15)
[2020-11-21] MEDS ORDERED: CIPROFLOXACIN 400mg IV 400 MG/200 ML BAG IV ONE (18:20)
[2020-11-21] MEDS ORDERED: METRONIDAZOLE 500mg IVPB 500 MG/100 ML BAG IV ONE (18:21)
[2020-11-21] MEDS: Ringers Lactate 1,000 ML IV ONE ×2 (19:17→19:32)
[2020-11-21] MEDS ORDERED: propofoL 200 MG/20 ML VIAL IV ONE (19:32)
[2020-11-21] MEDS ORDERED: ROCURONIUM 50 MG/5 ML VIAL IV ONE (19:33)
[2020-11-21] MEDS ORDERED: MIDAZOLAM HCL 2 MG/2 ML INJ ONE (19:33)
[2020-11-21] MEDS ORDERED: LIDOCAINE 2% MPF 5 ML VIAL ONE (19:33)
[2020-11-21] MEDS ORDERED: FENTANYL CITR 100 MCG/2 ML ONE (19:33)
[2020-11-21] MEDS ORDERED: Levofloxacin500mg IV 500 MG/100 ML BAG IV ONE (19:56)
--- NOTE | 2020-11-21 20:04 | P.HP ---
Certification for Inpatient Patient admitted to: Observation With expected LOS: <2 Midnights Practitioner: I am a practitioner with admitting privileges, knowledge of patient current condition, hospital course, and medical plan of care. Services: Services provided to patient in accordance with Admission requirements found in Title 42 Section 412.3 of the Code of Federal Regulations Patient History Date of Service: 11/21/20 Reason for admission: abd pain History of Present Illness: Pain sine 9 am Allergies No Known Allergies Allergy (Unverified 05/12/17 15:15) Home medications list reviewed: Yes - Past Medical/Surgical History Diabetic: No Past Medical History: Patient denies medical history Physical Examination - Physical Exam Gastrointestinal: Tenderness (in rlq), Rebound, Guarding - Studies Laboratory Data (last 24 hrs) 11/21/20 16:57: WBC 16.00 H, Hgb 13.3, Hct 39.7, Plt Count 370 11/21/20 16:57: Sodium 140, Potassium 3.6, BUN 11, Creatinine 0.68, Glucose 142 H, Total Bilirubin 0.4, AST 19, ALT 45, Alkaline Phosphatase 99, Lipase 91 Assessment and Plan - Plan acute abdomen. risks discussed Discharge Plan: Home Plan to discharge in: 24 Hours - Advance Directives Does patient have a Living Will: No Does patient have a Durable POA for Healthcare: No
[2020-11-21] MEDS ORDERED: dexAMETHasone 10 MG/ML VIAL ONE (20:21)
[2020-11-21] MEDS ORDERED: KETOROLAC 30 MG/ML INJ ONE (20:22)
[2020-11-21] MEDS ORDERED: GLYCOPYRROLATE 0.2 MG/ML SYR ONE (20:41)
[2020-11-21] MEDS ORDERED: NEOSTIGMINE 1 MG/ML -5 ML ONE (20:43)
[2020-11-21] MEDS ORDERED: CIPROFLOXACIN 400mg IV 400 MG/200 ML BAG IV SCH (21:00)
[2020-11-21] MEDS: HYDROMORPHONE HCL 1 MG/ML INJ ONE ×2 (21:11→21:27)
[2020-11-21] MEDS: FENTANYL CITR 100 MCG/2 ML ONE ×2 (21:32→21:37)
[2020-11-21] MEDS ORDERED: HYDROCODONE/APAP 7.5/325 MG TAB PO PRN (21:42)
[2020-11-21 21:45] VITALS: O2SAT 99
--- NOTE | 2020-11-21 23:14 | OP ---
Date of Procedure: 11/21/2020 Surgeon: Kartik Cazares MD Preoperative Diagnosis: Acute abdomen with appendicitis. Postoperative Diagnosis: Acute abdomen with appendicitis. Procedure Performed: Laparoscopic appendectomy. Findings And Operative Technique: The patient was brought to the operating room and placed supine on the table where after the induction of adequate general endotracheal anesthesia, the area of the abd omen was prepped with a DuraPrep solution, and she was draped in the usual aseptic manner. A subumbi lical incision was made. This was brought down through the skin and subcutaneous tissue. The Visipo rt was now used to enter the peritoneal cavity and create a pneumoperitoneum to approximately 12 mmHg . Under direct vision, a 5 mm trocar was placed in the lower midline and another in the right upper quadrant. With the patient placed in reverse Trendelenburg and rolled to the left, we were able to v isualize the right lower quadrant. We could see an intense inflammatory process in this area. It al so caused some petechial hemorrhages on the anterior abdominal wall where it had abutted against this process. Gentle dissection allowed us to expose the cecum. We saw that the appendix actually turne d and went into the retroperitoneal space. There were some omental adhesions on top of this which we re gently taken down using both blunt and sharp dissection as some of these adhesions appeared to be chronic. The area having been cleared, we can now visualize a markedly inflamed and partially gangre nous appendix. The base was identified and an opening was made in this area through which we were ab le to pass a dissector. This allowed us to create a tunnel at the junction of the appendix with the base of the cecum. The linear stapler was now introduced after converting the 10 mm to a 12 and plac ing a 5 mm in the right upper quadrant. The linear stapler was now introduced into the peritoneal ca vity, placed across the base of the appendix at the junction with the cecum. It was compressed and t hen fired. Pressure was held for approximately 15 seconds before releasing the device. Having done that, the instrument was removed. After changing around our dissection, we were able to see the pedi stone of the appendix itself. This was now taken down again using the linear stapler and placed it acr oss the vasculature to the appendix. The instrument was fired detaching the appendix completely. Th e appendix was now placed into an EndoCatch and brought out through the umbilical trocar site. Atten tion was turned towards the right lower quadrant, and again after placing the patient flat on the tab le, the area was irrigated with a copious amount of saline solution. The irrigated fluid was aspirat ed from the peritoneal cavity. The patient was placed in slight reverse Trendelenburg and once again , the area around the liver was also aspirated of its contents. This having been done, attention was turned back towards the umbilicus. Using the Endoclose, the fascia in that area was approximated. The patient also had complained of some chronic discharge coming from the umbilicus. We looked at th e skin. There appears to be a large sinus tract tracking up north. We did not interfere with this a s we do not want any factor contaminate our surgical incisions. We will discuss this with her on out patient basis and we will arrange if she wants to ar later date to have something more definitive don e. At this point, the instrument and sponge count were correct. One specimen was sent for histopath ology. Estimated blood loss was less than 10 cc. She was in a stable condition, was sent to the rec overy room. ROCIO/YOSI Voice ID: [id number] Report ID: [id number]
[2020-11-22] MEDS: METRONIDAZOLE 500mg IVPB 500 MG/100 ML BAG IV SCH ×2 (01:03→07:48)
[2020-11-22] MEDS: D5 0.45 NS 1,000 ML IV SCH ×3 (01:03→11:00)
[2020-11-22 06:36] VITALS: BMI 30.7
[2020-11-22 08:17] VITALS: TEMP 98.2
[2020-11-22] MEDS ORDERED: CIPROFLOXACIN 400mg IV 400 MG/200 ML BAG IV SCH (09:00)
[2020-11-23 10:01] VITALS: BP 109/58
== END 2020-11-22 13:45 | disposition home or self-care (01) | DRG 343 ==
LOC: ER 16:15 → ERHOLD 18:19 → 4TH 21:05 → OBSVTOIN 11-22 09:50
PROVIDERS: ADMIT Surgery; ATTEND Surgery
PROC: 0DTJ4ZZ Resection of Appendix, Percutaneous Endoscopic Approach (ICD-10-PCS; principal; 2020-11-22)
DX: K35.80 Unspecified acute appendicitis (principal); Z20.822 Contact with and (suspected) exposure to COVID-19
CPT/HCPCS: 36415; 74177; 80048; 80076; 81003; 81015; 81025; 83690; 85025; 87077; 87086; 87088; 87186; 88304; 96365; 96375; 99285; J0744; J1100; J1170; J2250; J2405; J2704; J2710; J3010; J7120; J7799; Q9967; U0003

== ENCOUNTER 2021-06-16 14:41 | Emergency (ER) | payer SELFPAY ==
[2021-06-16 15:52] LABS: Absolute Lymphocytes (CBC) 2.7 K/uL (0.7-4.9); Basophils % 0.2 % (0-1.3); Hematocrit 37.7 % (36.0-45.0); Lymphocytes % 26.3 % (15.3-44.8); MPV 7.5 fL (7.6-11.3); RBC Red Blood Cell Count 4.39 M/uL (3.86-4.86)
[2021-06-16] MEDS ORDERED: MORPHINE 2 MG/ML SYR ONE (15:56)
[2021-06-16] MEDS ORDERED: ONDANSETRON 4 MG/2 ML VIAL ONE (15:56)
[2021-06-16 16:13] LABS: ALT/SGPT 33 U/L (12-78); AST/SGOT 16 U/L (15-37); Albumin 4.4 g/dL (3.4-5.0); Alkaline Phosphatase 81 U/L (45-117); BUN Blood Urea Nitrogen 15 mg/dL (7-18); Bicarbonate 29 mmol/L (21-32); Bilirubin Direct < 0.1 mg/dL (0-0.2); Bilirubin Total 0.4 mg/dL (0.2-1.0); Glucose Level 92 mg/dL (74-106); Lipase 90 U/L (73-393); Potassium 3.8 mmol/L (3.5-5.1); Sodium Level 141 mmol/L (136-145)
[2021-06-16 16:32] LABS: Urine Blood 3+ (Negative); Urine Glucose Negative (Negative); Urine Protein Negative (Negative); Urine Specific Gravity >=1.030 (1.005-1.030); Urine pH 5.5 (5.0-7.0)
--- NOTE | 2021-06-16 17:12 | RAD REPORT ---
EXAM DESCRIPTION: CTAbdomen Pelvis W Contrast - 06/16/2021 4:39 pm CLINICAL HISTORY: Abdominal pain. lower abdominal pain COMPARISON: Abdomen Pelvis W Contrast dated 11/21/2020 TECHNIQUE: Biphasic CT imaging of the abdomen and pelvis was performed with 100 ml non-ionic IV cont rast. All CT scans are performed using dose optimization technique as appropriate and may include automated exposure control or mA/KV adjustment according to patient size. FINDINGS: The lung bases are clear. The liver, spleen, pancreas, adrenal glands are within normal limits. Horseshoe kidney. No bowel obstruction, free air, free fluid or abscess. Mild inflammation is seen along the anterior m argin of the cecum at the level of the ileocecal valve. Appendectomy. No evidence of significant lym phadenopathy. No suspicious bony findings. IMPRESSION: Mild inflammation is seen along the anterior aspect the cecum at the level of the ileoce kimberly valve. This may represent cecal diverticulitis. As a neoplasm can also cause this appearance, fol lowup colonoscopy would be recommended after appropriate treatment. Horseshoe kidney.
[2021-06-16 17:41] LABS: Urine Bacteria >50 /HPF (<20)
[2021-06-16 17:42] LABS: Urine Amorphous Sediment 2+ /HPF (NONE SEEN); Urine Mucus 2+ /HPF (NONE SEEN)
--- NOTE | 2021-06-16 18:04 | EDPHYS ---
Physician Documentation [facility] Name: Danay Duff Age: 40 yrs Sex: Female : 1980 Arrival Date: 06/16/2021 Time: 14:43 Bed 13 Private MD: ED Physician Brenton Mercado HPI: 06/16 15:28 This 40 yrs old Female presents to ER via Ambulatory with complaints of Side jmm Pain. 15:28 The patient presents with abdominal pain. Onset: The symptoms/episode began/occurred jmm gradually, 2 day(s) ago. The symptoms do not radiate. Associated signs and symptoms: Pertinent negatives: nausea and vomiting, diarrhea, dysuria, vaginal discharge, vomiting. The symptoms are described as achy. Modifying factors: The symptoms are alleviated by nothing, the symptoms are aggravated by. This is a 40-year-old female with no chronic medical conditions presents emerged part with complaints of right lower abdominal pain beginning approximately 2 days ago. Patient denies vomiting, fever, diarrhea, vaginal discharge, hematuria, dysuria. RN CLINICAL REVIEW: 15:10 1, Full Term 1, Premature 0, 0, Living 1 es2 Historical: - Allergies: 14:54 No Known Allergies; ll1 - PMHx: 14:54 None; ll1 - PSHx: 14:54 Appendectomy; Tonsillectomy; ll1 - Immunization history:: Client reports receiving the Hilario \T\ Hilario single-dose vaccine. - Social history:: Smoking status: Patient denies any tobacco usage or history of. ROS: 15:28 Constitutional: Negative for fever, chills, and weight loss, Cardiovascular: Negative jmm for chest pain, palpitations, and edema, Respiratory: Negative for shortness of breath, cough, wheezing, and pleuritic chest pain. 15:28 Abdomen/GI: Positive for abdominal pain. 15:28 All other systems are negative. Exam: 15:28 Constitutional: This is a well developed, well nourished patient who is awake, alert, jmm and in no acute distress. Head/Face: atraumatic. Eyes: EOMI, no conjunctival erythema appreciated ENT: Moist Mucus Membranes Neck: Trachea midline, Supple Chest/axilla: Normal chest wall appearance and motion. Cardiovascular: Regular rate and rhythm. No edema appreciated Respiratory: Normal respirations, no respiratory distress appreciated 15:28 Back: Normal ROM Skin: General appearance color normal MS/ Extremity: Moves all extremities, no obvious deformities appreciated, no edema noted to the lower extremities Neuro: Awake and alert, normal gait Psych: Behavior is normal, Mood is normal, Patient is cooperative and pleasant 15:28 Abdomen/GI: Inspection: abdomen appears normal, Bowel sounds: normal, Palpation: soft, mild abdominal tenderness, in the right lower quadrant. Vital Signs: 14:52 BP 116 / 73; Pulse 80; Resp 16; Temp 99.0; Pulse Ox 97% ; Pain 7/10; ll1 15:10 BP 111 / 79; Pulse 83; Resp 18; Pulse Ox 100% on R/A; es2 17:15 BP 106 / 54; Pulse 52; Resp 18; Pulse Ox 99% on R/A; es2 18:05 BP 115 / 62; Pulse 64; Resp 18; Pulse Ox 100% on R/A; es2 MDM: 15:26 Patient medically screened. ruby 18:02 Data reviewed: vital signs, nurses notes. Counseling: I had a detailed discussion with ruby the patient and/or guardian regarding: the historical points, exam findings, and any diagnostic results supporting the discharge/admit diagnosis, lab results, radiology results, the need for outpatient follow up, to return to the emergency department if symptoms worsen or persist or if there are any questions or concerns that arise at home. ED course: Patient is alert and nontoxic in appearance in the ED. Patient states feeling much better. We will treat the patient with oral antibiotics and I did discuss CT results with the patient advising for the need for colonoscopy due to concerns for possible early cancer. Patient understood and agrees to plan of care.. 06/16 15:27 Order name: Basic Metabolic Panel [facility] 06/16 15:27 Order name: CBC with Diff; Complete Time: 15:56 [facility] 06/16 15:27 Order name: Hepatic Function; Complete Time: 16:14 [facility] 06/16 15:27 Order name: Lipase; Complete Time: 16:14 [facility] 06/16 15:27 Order name: Basic Metabolic Panel; Complete Time: 16:14 [facility] 06/16 16:32 Order name: Urine Dipstick-Ancillary; Complete Time: 16:39 [facility] 06/16 15:27 Order name: IV Saline Lock; Complete Time: 15:27 [facility] 06/16 15:28 Order name: CT Abd/Pelvis - IV Contrast Only; Complete Time: 17:21 [facility] 06/16 16:33 Order name: Urine Microscopic Only; Complete Time: 17:47 ss 06/16 16:36 Order name: Urine --Ancillary (enter results); Complete Time: 17:47 eb 06/16 17:44 Order name: Urine Culture [facility] 06/16 15:27 Order name: Labs collected and sent [facility] 06/16 15:57 Order name: Urine Dipstick-Ancillary (obtain specimen); Complete Time: 16:33 [facility] 06/16 15:57 Order name: Urine Test (obtain specimen); Complete Time: 16:33 [facility] Administered Medications: 15:36 Drug: morphine 2 mg Route: IVP; Site: right antecubital; es2 15:55 Follow up: Response: No adverse reaction es2 15:37 Drug: Zofran (Ondansetron) 4 mg Route: IVP; Site: right antecubital; es2 15:54 Follow up: Response: No adverse reaction es2 Disposition Summary: 06/16/21 18:04 Discharge Ordered Location: Home [facility] Condition: Stable [facility] Diagnosis - Colitis [facility] Followup: [facility] - With: Ryan Resendiz MD - When: 2 - 3 days - Reason: Recheck today's complaints, Continuance of care, Re-evaluation by your physician Discharge Instructions: - Discharge Summary Sheet [facility] - Colitis [facility] Forms: - Medication Reconciliation Form [facility] - Thank You Letter [facility] - Antibiotic Education [facility] - Prescription Opioid Use [facility] Prescriptions: - Cipro 500 mg Oral Tablet - take 1 tablet by ORAL route every 12 hours for 10 days; 20 tablet; Refills: 0, [facility] Product Selection Permitted - Flagyl 500 mg Oral Tablet - take 1 tablet by ORAL route every 6 hours for 10 days; 40 tablet; Refills: 0, [facility] Product Selection Permitted - dicyclomine 20 mg Oral Tablet - take 1 tablet by ORAL route 4 times per day; 30 tablet; Refills: 0, Product [facility] Selection Permitted Addendum: 06/22/2021 04:39 Co-signature as Attending Physician, Brenton renee a2 Signatures: Dispatcher [employer] EDMS Javan Hendrickson PA PA jmm Alzahri, Mohammad, MD MD ma2 Samira Desouza RN RN ll1 Susan Ballesteros RN RN es2 Corrections: (The following items were deleted from the chart) 06/16 15:57 15:28 Pelvis Complete+US.RAD.BARRETTZ ordered. EDMS EDMS
--- NOTE | 2021-06-16 18:04 | ER ---
Nurse's Notes [facility] Name: Danay Duff Age: 40 yrs Sex: Female : 1980 Arrival Date: 06/16/2021 Time: 14:43 Bed 13 Private MD: Diagnosis: Colitis Presentation: 06/16 14:52 Chief complaint: Patient states: RLQ abd pain for 2 days. No fever. No N/V/D. ll1 Coronavirus screen: Client denies travel out of the [place] in the last 14 days. At this time, the client does not indicate any symptoms associated with coronavirus-19. Ebola Screen: Patient denies travel to an Ebola-affected area in the 21 days before illness onset. Initial Sepsis Screen: Does the patient meet any 2 criteria? No. Patient's initial sepsis screen is negative. Does the patient have a suspected source of infection? Yes: Acute abdominal pain. Risk Assessment: Do you want to hurt yourself or someone else? Patient reports no desire to harm self or others. Onset of symptoms was June 15, 2021. 14:52 Method Of Arrival: Ambulatory [facility] 14:52 Acuity: DADA 3 ll1 BUSHLER: 15:10 1, Full Term 1, Premature 0, 0, Living 1 es2 Historical: - Allergies: 14:54 No Known Allergies; ll1 - PMHx: 14:54 None; ll1 - PSHx: 14:54 Appendectomy; Tonsillectomy; ll1 - Immunization history:: Client reports receiving the Hilario \T\ Hilario single-dose vaccine. - Social history:: Smoking status: Patient denies any tobacco usage or history of. Screenin:10 Fall Risk Gait- Normal/Bed Rest/Wheelchair (0 pts) Mental Status- Oriented to own es2 ability (0 pts). 15:10 Abuse screen: Denies threats or abuse. Denies injuries from another. Nutritional es2 screening: No deficits noted. Tuberculosis screening: No symptoms or risk factors identified. Assessment: 15:08 Reassessment: Patient and/or family updated on plan of care and expected duration. Pain es2 level reassessed. Patient is alert, oriented x 3, equal unlabored respirations, skin warm/dry/pink. in for R flank pain that started yesterday morning. General: Appears well groomed, well developed, well nourished, Behavior is calm, cooperative, appropriate for age. Pain: Complains of pain in R flank pain Pain currently is 7 out of 10 on a pain scale. Neuro: Level of Consciousness is awake, alert, obeys commands, Oriented to person, place, time, situation, Appropriate for age Speech is normal. Cardiovascular: Capillary refill < 3 seconds Patient's skin is warm and dry. Respiratory: Airway is patent Respiratory effort is even, unlabored, Respiratory pattern is regular, symmetrical. GI:. Vital Signs: 14:52 BP 116 / 73; Pulse 80; Resp 16; Temp 99.0; Pulse Ox 97% ; Pain 7/10; ll1 15:10 BP 111 / 79; Pulse 83; Resp 18; Pulse Ox 100% on R/A; es2 17:15 BP 106 / 54; Pulse 52; Resp 18; Pulse Ox 99% on R/A; es2 18:05 BP 115 / 62; Pulse 64; Resp 18; Pulse Ox 100% on R/A; es2 ED Course: 14:43 Patient arrived in ED. ds1 14:54 Triage completed. ll1 14:54 Arm band placed on Patient placed in an exam room, on a stretcher. ll1 15:08 Susan Ballesteros, PARTH is Primary Nurse. es2 15:09 Javan Hendrickson PA is PHCP. m 15:09 Brenton Mercado MD is Attending Physician. m 15:09 Patient has correct armband on for positive identification. Bed in low position. Call es2 light in reach. 15:10 No provider procedures requiring assistance completed. es2 15:27 Inserted saline lock: 20 gauge in right antecubital area, using aseptic technique. es2 Blood collected. 16:39 CT Abd/Pelvis - IV Contrast Only In Process Unspecified. EDMS 18:03 Ryan Resendiz MD is Referral Physician. m 18:13 IV discontinued, intact, bleeding controlled, No redness/swelling at site. Pressure es2 dressing applied. Administered Medications: 15:36 Drug: morphine 2 mg Route: IVP; Site: right antecubital; es2 15:55 Follow up: Response: No adverse reaction es2 15:37 Drug: Zofran (Ondansetron) 4 mg Route: IVP; Site: right antecubital; es2 15:54 Follow up: Response: No adverse reaction es2 Outcome: 18:04 Discharge ordered by . ruby 18:05 Condition: stable es2 18:12 Discharge instructions given to patient, Instructed on discharge instructions, follow es2 up and referral plans. medication usage, Demonstrated understanding of instructions, follow-up care, medications, Prescriptions given X 3. 18:13 Discharged to home ambulatory. es2 18:13 Patient left the ED. es2 Signatures: Dispatcher [employer] EDMS Javan Hendrickson PA PA jmm Sanford, Demi ds1 Samira Desouza RN RN ll1 Susan Ballesteros RN RN es2
[2021-06-16 18:38] VITALS: TEMP 99
[2021-06-16 18:41] VITALS: BP 115/62; O2SAT 100
== END 2021-06-16 18:13 | disposition home or self-care (01) ==
LOC: ER 14:41
DX: K52.9 Noninfective gastroenteritis and colitis, unspecified (principal)
CPT/HCPCS: 36415; 74177; 80048; 80076; 81003; 81015; 81025; 83690; 85025; 87077; 87086; 87088; 87186; 96374; 96375; 99284; J2270; J2405; Q9967